=== PATIENT | male | born 1990 | race Caucasian/White ===

== ENCOUNTER 2016-12-26 06:40 | Emergency (ER) | payer OTHER ==
[~2016-12-26] VITALS: Wt 75.0 kg
--- NOTE | 2016-12-26 07:26 | ERD ---
ER Documentation Chief Complaint Date/Time DATE: 12/26/16 TIME: 07:24 Chief Complaint NOSEBLEED SINCE THIS AM. NO TRAUMA. NO HEADACHE. BLEEDING CONTROLLED HPI 26 year old male comes in with a right nares epistaxis that started at 5am this morning after coughing. He has had URI symptoms over the last few days, taking Mucinex. He denies trauma, ETOH abuse or taking blood thinners. Denies headache. His nosebleed has already stopped bleeding. ROS All systems reviewed and are negative except as per history of present illness. Medications Home Meds Active Scripts Cetirizine Hcl* (Zyrtec*) 10 Mg Capsule, 10 MG PO DAILY, #30 TAB Prov:ROBERT RIVERA PA-C 12/26/16 Oxymetazoline Hcl* (Afrin [place]*) 0.05% - 15 Ml [place], 2 SPRAYS NASAL BID, #1 EA to each nostril Prov:ROBERT RIVERA PA-C 12/26/16 PMhx/Soc Hx Alcohol Use: Yes (Occ.) Hx Substance Use: No Hx Tobacco Use: No Physical Exam Vitals Vital Signs Date Time Temp Pulse Resp B/P Pulse Ox O2 Delivery O2 Flow Rate FiO2 12/26/16 06:48 98.1 98 20 136/87 99 Physical Exam General: Well-developed, well-nourished. The patient appears in no acute distress. HEENT: Head is normocephalic, atraumatic. No scleral icterus. Pupils are equal , round, and reactive. Oral mucous membranes are moist. No pharyngeal erythema. Nares is clotted on the right side. No bleeding on the left. Neck: Supple. Nontender. Lungs: Clear to auscultation. Normal air movement. Heart: Regular rate and rhythm. S1 and S2 are normal. No murmurs, gallops, or rubs. Abdomen: Soft, nontender, nondistended. Bowel sounds are normoactive. Extremities: No clubbing or cyanosis. Normal pulses. Moving extremities x 4. No weakness. Neurologic: Alert and oriented 3. No focal deficits. Skin: Normal turgor. No rash or lesions. Results 24 hrs Current Medications Medications (Trade) Dose Ordered Sig/[place] Route PRN Reason Start Time Stop Time Status Last Admin Dose Admin Silver Nitrate (Silver Nitrate Swabs) 1 stick ONCE ONCE TOP 12/26/16 07:30 12/26/16 07:31 DC Procedures/MDM ED course: Patient manually remove the blood clot in the right naris, evaluation of the patient shows mild bleeding in the anterior portion, there is no posterior bleeding. Small silver nitrate is applied, cautery was successful. 26-year-old male comes in with URI symptoms, subsequently he coughed and because epistaxis on the right nares. There is no evidence of posterior bleed, no packing was needed at this time given that he had resolution of bleeding with silver nitrate. Patient will be given Zyrtec, as well as Afrin spray to be used as needed. No evidence of trauma, posterior bleed or necessary ENT emergent evaluation. Departure Diagnosis: Primary Impression: Epistaxis Condition: ROBERT Nunes PA-C Dec 26, 2016 07:26
[2016-12-26] MEDS ORDERED: SILVER NITRATE SWAB TOP ONE (07:30)
[2016-12-26] MEDS ORDERED: OXYM15SP34 NASAL (07:33)
[2016-12-26] MEDS ORDERED: CETI10CA PO (07:33)
== END 2016-12-26 07:44 | disposition home or self-care (01) ==
LOC: FTE 06:40
DX: R04.0 Epistaxis (principal)
CPT/HCPCS: 30901; Z7610